=== PATIENT | female | born 1950 | race Caucasian/White ===

== ENCOUNTER 2024-04-13 18:27 | Emergency (ER) | payer MEDICARE ==
[2024-04-13] MEDS: Diphtheria,Pertussis(Acell),Tetanus Vaccine 0.5 ML Syringe IM ONE (21:10)
== END 2024-04-13 21:55 | disposition home or self-care (01) ==
LOC: MW.ED 18:27
DX: S06.0X0A Concussion without loss of consciousness, initial encounter (principal); J34.89 Other specified disorders of nose and nasal sinuses; Z88.1 Allergy status to other antibiotic agents; Z79.899 Other long term (current) drug therapy; Z75.8 Other problems related to medical facilities and other health care; W00.0XXA Fall on same level due to ice and snow, initial encounter; Z23 Encounter for immunization
CPT/HCPCS: 70450; 70450-26; 72125; 72125-26; 90471; 90715; 99283-25